=== PATIENT | female | born 1935 | race American Indian/Alaskan Native ===

== ENCOUNTER → 2017-02-07 | Outpatient (CLI) | payer MEDICARE ==
[~2017-02-07] VITALS: Ht 162.6 cm; Wt 56.7 kg
[~2017-02-07] MED LIST: AMLO10TA2 PO; ASPI81TA85 PO; HYDR12.55 PO; LIVA2TAB PO; LOVA1CAP17 PO; NS 1,000 ML IV SCH; PROPOFOL 200 MG/20 ML VIAL As Ordered ONE; SYMB16INH INH; VITA200015 PO; VITATAB11 PO
--- NOTE | 2017-02-07 11:45 | ROOR ---
Patient Name: Monica Clinton Procedure Date: 02/07/2017 11:15 AM Date of : 1935 Age: 81 Room: [facility] Gender: Female Note Status: Finalized Procedure: Colonoscopy Indications: High risk colon cancer surveillance: Personal history of colonic polyps, Last colonoscopy: January 2013 Providers: João CHENEY MD Referring MD: Yifan Parrish MD Requesting Provider: Medicines: Monitored Anesthesia Care Complications: No immediate complications. Procedure: Pre-Anesthesia Assessment: - The heart rate, respiratory rate, oxygen saturations, blood pressure, adequacy of pulmonary ventilation, and response to care were monitored throughout the procedure. The Colonoscope was introduced through the anus and advanced to the cecum, identified by appendiceal orifice and ileocecal valve. The colonoscopy was performed without difficulty. The patient tolerated the procedure well. The quality of the bowel preparation was good. Findings: The perianal and digital rectal examinations were normal. (Exam: Complete, Prep: Good or Excellent.) Multiple medium-mouthed diverticula were found in the sigmoid colon. Internal hemorrhoids were found during retroflexion. The hemorrhoids were moderate. The exam was otherwise without abnormality. Impression: - Moderate diverticulosis in the sigmoid colon. - Internal hemorrhoids. - The examination was otherwise normal. - No specimens collected. Recommendation: - Repeat colonoscopy in 5 years for surveillance based on personal history of previous adenomatous polyps. - (- to be discussed in 5 yrs) João Cheney MD João CHENEY MD 02/07/2017 11:45:41 AM This report has been signed electronically. Number of Addenda: 0 Note Initiated On: 02/07/2017 11:15 AM Estimated Blood Loss: Estimated blood loss: none.
[2017-02-07 12:10] VITALS: BP 153/69
== END | disposition home or self-care (01) ==
LOC: M OPP 10:06
PROVIDERS: ATTEND Internal Medicine Gastroenterology
DX: Z12.11 Encounter for screening for malignant neoplasm of colon (principal); K57.30 Diverticulosis of large intestine without perforation or abscess without bleeding; K64.8 Other hemorrhoids; I10 Essential (primary) hypertension; E78.5 Hyperlipidemia, unspecified; J45.909 Unspecified asthma, uncomplicated; R73.09 Other abnormal glucose; M19.90 Unspecified osteoarthritis, unspecified site; Z79.899 Other long term (current) drug therapy; Z88.0 Allergy status to penicillin; Z91.040 Latex allergy status; Z79.51 Long term (current) use of inhaled steroids
CPT/HCPCS: 99156; 99157; G0105

== ENCOUNTER → 2017-07-05 | Outpatient (CLI) | payer MEDICARE ==
[~2017-07-05] MED LIST changes: -NS 1,000 ML IV SCH; -PROPOFOL 200 MG/20 ML VIAL As Ordered ONE
--- NOTE | 2017-07-05 10:11 | REP ---
LUMBAR SPINE, FIVE VIEWS: HISTORY: Back pain. There is no acute fracture. There is partial sacralization of the L5 vertebral body. The lumbar intervertebral discs are decreased in height consistent with disc degeneration. An osteophyte is present on L3. There is narrowing of the L4-5 and L5-S1 facet joints. There are 5 mm of right lateral subluxation of L2 on L3. IMPRESSION: Degenerative change as described above. Signed by Adrian Mcelroy MD 07/05/2017 10:15 A
--- NOTE | 2017-07-05 10:51 | REP ---
BILATERAL HIP, FOUR VIEWS: HISTORY: Pain. RIGHT HIP: There is no acute fracture or dislocation. There is minimal narrowing of the joint space. IMPRESSION: Degenerative change as described above. Left hip: There is no acute fracture or dislocation. There is minimal narrowing of the joint space. Impression: Degenerative change as described above. Signed by Adrian Mcelroy MD 07/05/2017 11:04 A
== END ==
LOC: M WUC 09:26
PROVIDERS: ATTEND Family Medicine
DX: M25.551 Pain in right hip (principal); M25.552 Pain in left hip; M16.0 Bilateral primary osteoarthritis of hip; M47.896 Other spondylosis, lumbar region

== ENCOUNTER 2017-07-11 08:06 | Outpatient (RCR) | payer MEDICARE | END 2017-07-13 | disposition home or self-care (01) | LOC: M PT 08:06 | PROVIDERS: ATTEND Orthopaedic Surgery | DX: Z51.89 Encounter for other specified aftercare (principal); M54.16 Radiculopathy, lumbar region; Z88.0 Allergy status to penicillin; Z91.040 Latex allergy status | CPT/HCPCS: 97161; G8984; G8985 ==

== ENCOUNTER 2017-07-27 10:09 | Outpatient (RCR) | payer MEDICARE | END 2017-08-12 | disposition home or self-care (01) | LOC: M PT 10:09 | PROVIDERS: ATTEND Orthopaedic Surgery | DX: Z51.89 Encounter for other specified aftercare (principal); M54.16 Radiculopathy, lumbar region | CPT/HCPCS: 97110; 97140; 97164; G8985; G8986 ==

== ENCOUNTER → 2017-09-20 | Outpatient (CLI) | payer MEDICARE ==
--- NOTE | 2017-09-20 11:30 | REPMRS ---
Patient History The patient states she had a clinical breast exam in 04/2017. Patient is postmenopausal and has history of other cancer at age 75. Family history of breast cancer in sister under age 50, colorectal cancer in sister under age 50, ovarian cancer in mother at age 45, colorectal cancer in maternal half sister, and pancreatic cancer in niece at age 48. Digital Woman Screen Mammo: September 20, 2017 - Exam #: [id number] Bilateral CC and MLO view(s) were taken. Technologist: Camille Prakash Technologist Prior study comparison: September 19, 2016, digital woman screen mammo performed at [facility]. September 10, 2015, digital woman screen mammo performed at [facility]. September 09, 2014, right breast digital mammo diagnostic unilateral, performed at [facility]. FINDINGS: The breast tissue is heterogeneously dense. This may lower the sensitivity of mammography. There is a moderate amount of heterogeneously dense fibroglandular tissue which is fairly symmetric. There is no interval development of dominant mass, architectural distortion, or clustered microcalcification typical of malignancy. There has been no change in the appearance of the mammogram from the prior studies. ASSESSMENT: BI-RADS/ACR category 1 mammogram. Negative. Recommendation Routine screening mammogram of both breasts in 1 year (for women over age 40). This mammogram was interpreted with the aid of an FDA-approved computer-aided dectection system. Electronically Signed By: Boogie Paredes MD 09/20/17 [id number]
== END ==
LOC: M WHC 10:31
PROVIDERS: ATTEND Family Medicine
DX: Z12.31 Encounter for screening mammogram for malignant neoplasm of breast (principal); Z78.0 Asymptomatic menopausal state; Z80.3 Family history of malignant neoplasm of breast

== ENCOUNTER → 2018-09-21 | Outpatient (CLI) | payer MEDICARE | LOC: M WHC 13:30 | DX: Z12.31 Encounter for screening mammogram for malignant neoplasm of breast (principal); Z78.0 Asymptomatic menopausal state; Z80.3 Family history of malignant neoplasm of breast; Z80.41 Family history of malignant neoplasm of ovary; Z80.0 Family history of malignant neoplasm of digestive organs | CPT/HCPCS: 77067 ==

== ENCOUNTER → 2019-06-19 | Outpatient (CLI) | payer MEDICARE ==
[~2019-06-19] MED LIST changes: -AMLO10TA2 PO; +AMLO10TA5 PO
--- NOTE | 2019-06-20 14:12 | DEXA ---
AP SPINE L1 - L4 0.981 -1.7 0.2 LT FEMUR TOTAL 0.809 -1.6 0.7 LT NECK 0.693 -2.5 -0.1 RT FEMUR TOTAL 0.809 -1.6 0.8 RT NECK 0.755 -2.0 0.4 TOTAL BODY TOTAL OTHER COMMENTS: There is low bone density of the spine and hips. The increased density of the spine does represent a significant change. The decreased density of the left hip does not represent a significant change. The increased density of the right hip does not represent a significant change. The density of the spine has increased 0.2% since the initial exam on 03/29/2000. The spine density has increased 2.7% since the most recent exam on 06/01/2016. The density of the left hip has decreased 10.9% since the initial exam on 03/29/2000. The density of the left hip has decreased 1.2% since the most recent exam on 06/01/2016. The density of the right hip has decreased 8.7% since the initial exam on 03/29/2000. The density of the right hip has increased 0.1% since the most recent exam on 06/01/2016. FOLLOW-UP: Recommendation for the next bone density exam: 2 years. ALLAN
== END ==
LOC: M WHC 08:05
PROVIDERS: ATTEND Family Medicine
DX: M81.0 Age-related osteoporosis without current pathological fracture (principal)

== ENCOUNTER → 2019-11-15 | Outpatient (CLI) | payer MEDICARE ==
--- NOTE | 2019-11-15 14:56 | REPMRS ---
Patient History The patient states she had a clinical breast exam in April 2019. Family history of breast cancer under age 50 in sister, colorectal cancer under age 50 in sister, ovarian cancer at age 45 in mother, colorectal cancer in maternal half sister, pancreatic cancer at age 48 in niece. No Hormone Replacement Therapy Digital Woman Screen Mammo: November 15, 2019 - Exam #: [id number] Bilateral CC and MLO view(s) were taken. Technologist: Elly Valentine, Technologist Prior study comparison: September 21, 2018, bilateral digital woman screen mammo performed at [facility]. September 20, 2017, digital woman screen mammo performed at [facility]. September 19, 2016, digital woman screen mammo performed at [facility]. FINDINGS: The breast tissue is heterogeneously dense. This may lower the sensitivity of mammography. There is a moderate amount of heterogeneously dense fibroglandular tissue which is fairly symmetric. There is no interval development of dominant mass, architectural distortion, or grouped microcalcification typical of malignancy. There has been no change in the appearance of the mammogram from the prior studies. 3-D tomosynthesis shows no additional findings. Assessment: BI-RADS/ACR category 1 mammogram. Negative Mammogram. Recommendation Routine screening mammogram of both breasts in 1 year (for women over age 40). This mammogram was interpreted with the aid of an FDA-approved computer-aided dectection system. Electronically Signed By: Boogie Paredes MD 11/15/19 [id number]
== END ==
LOC: M WHC 13:25
PROVIDERS: ATTEND Family Medicine
DX: Z12.31 Encounter for screening mammogram for malignant neoplasm of breast (principal); Z80.0 Family history of malignant neoplasm of digestive organs; Z85.3 Personal history of malignant neoplasm of breast; Z80.41 Family history of malignant neoplasm of ovary

== ENCOUNTER → 2020-12-08 | Outpatient (CLI) | payer MEDICARE ==
[~2020-12-08] MED LIST changes: -AMLO10TA5 PO; +AMLO1TAB25 PO; -ASPI81TA85 PO; +ASPI81TA86 PO
--- NOTE | 2020-12-08 13:05 | REPMRS ---
Patient History The patient states she had a clinical breast exam in 11/2020 Family history of breast cancer under age 50 in sister, colorectal cancer under age 50 in sister, ovarian cancer at age 45 in mother, colorectal cancer in maternal half sister, pancreatic cancer at age 48 in niece. No Hormone Replacement Therapy Digital Woman Screen Mammo: December 08, 2020 - Exam #: [id number] Bilateral CC and MLO view(s) were taken. Technologist: Jyotsna Swain, Technologist Prior study comparison: November 15, 2019, bilateral digital woman screen mammo performed at [facility]. September 21, 2018, bilateral digital woman screen mammo performed at [facility]. September 20, 2017, digital woman screen mammo performed at [facility]. FINDINGS: The breast tissue is heterogeneously dense. This may lower the sensitivity of mammography. The Volpara volumetric breast density category is: C. There is a moderate amount of heterogeneously dense fibroglandular tissue which is fairly symmetric. There is no interval development of dominant mass, architectural distortion, or grouped microcalcification typical of malignancy. There has been no change in the appearance of the mammogram from the prior studies. 3-D tomosynthesis shows no additional findings. Assessment: BI-RADS/ACR category 1 mammogram. Negative Mammogram. Recommendation Routine screening mammogram of both breasts in 1 year (for women over age 40). This mammogram was interpreted with the aid of an FDA-approved computer-aided dectection system. Electronically Signed By: Boogie Paredes MD 12/08/20 [id number]
== END ==
LOC: M WHC 11:27
PROVIDERS: ATTEND Family Medicine
DX: Z12.31 Encounter for screening mammogram for malignant neoplasm of breast (principal); Z80.3 Family history of malignant neoplasm of breast; Z80.0 Family history of malignant neoplasm of digestive organs

== ENCOUNTER → 2021-06-16 | Outpatient (CLI) | payer MEDICARE ==
--- NOTE | 2021-06-16 14:34 | DEXAMM ---
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 COMPARISON: 06/19/2019 as well as other prior exams. TECHNIQUE: Bone density was measured using dual-energy x-ray absorptiometry (DEXA). FINDINGS: AP SPINE L1-L4 BMD 1.041 g/cm2 Young Adult T-Score -1.2 Age Matched Z-Score 0.7. LT FEMUR, TOTAL BMD 0.774 g/cm2 Young Adult T-Score -1.9 Age Matched Z-Score 0.6. LT NECK BMD 0.717 g/cm2 Young Adult T-Score -2.3 Age Matched Z-Score 0.2. RT FEMUR, TOTAL BMD 0.782 g/cm2 Young Adult T-Score -1.8 Age Matched Z-Score 0.6. RT NECK BMD 0.728 g/cm2 Young Adult T-Score -2.2 Age Matched Z-Score 0.3. IMPRESSION: There is low bone density of the spine. There is low bone density of the left hip. There is low bone density of the right hip. The density of the spine has increased 6.3% since the initial exam on 03/29/2000. The density of the spine increased 6.1% since most recent exam on 06/19/2019. The density of the left hip has decreased 14.8% since initial exam on 03/29/2000. The density of the left hip has decreased 4.3% since most recent exam on 06/19/2019. The density of the right hip has decreased 11.7% since the initial exam on 03/29/2000. The density of the right hip has decreased 3.3% since the most recent exam on 06/19/2019. FOLLOW-UP: Recommendation for the next bone density exam: 2 years. <Electronically signed by Carlton Barrett > 06/16/21 [id number]
== END ==
LOC: M WHC 11:26
PROVIDERS: ATTEND Family Medicine
DX: M81.0 Age-related osteoporosis without current pathological fracture (principal); M85.851 Other specified disorders of bone density and structure, right thigh; M85.852 Other specified disorders of bone density and structure, left thigh; M85.88 Other specified disorders of bone density and structure, other site

== ENCOUNTER → 2022-03-01 | Outpatient (CLI) | payer MEDICARE | LOC: M WHC 14:57 | PROVIDERS: ATTEND Family Medicine | DX: Z12.31 Encounter for screening mammogram for malignant neoplasm of breast (principal); Z80.3 Family history of malignant neoplasm of breast; R92.2 Inconclusive mammogram ==

== ENCOUNTER → 2023-01-27 | Outpatient (CLI) | payer MEDICAID, MEDICARE, OTHER | LOC: M PLAIMG 13:48 | PROVIDERS: ATTEND Family Medicine | DX: R07.89 Other chest pain (principal); I51.7 Cardiomegaly ==

== ENCOUNTER → 2023-03-02 | Outpatient (CLI) | payer MEDICARE | LOC: M WHC 09:05 | PROVIDERS: ATTEND Family Medicine | DX: Z12.31 Encounter for screening mammogram for malignant neoplasm of breast (principal) ==